=== PATIENT | male | born 1990 | race Caucasian/White ===

== ENCOUNTER 2019-06-09 11:52 | Emergency (ER) | payer SELFPAY | END 2019-06-09 13:31 | disposition home or self-care (01) | PROVIDERS: Emergency Provider Family Medicine; Family Provider Family Medicine; Visit Provider Family Medicine | DX: S16.1XXA Strain of muscle, fascia and tendon at neck level, initial encounter (principal); X58.XXXA Exposure to other specified factors, initial encounter; F17.210 Nicotine dependence, cigarettes, uncomplicated | CPT/HCPCS: 72040; 73030; 99283 ==

== ENCOUNTER 2020-12-10 09:38 | Emergency (ER) | payer SELFPAY ==
[2020-12-10 10:29] VITALS: BP 129/79; PULSE 61; RESP 16; TEMP 36.6; O2SAT 100; BMI 38.0
[2020-12-10 10:33] VITALS: RESP 15
--- NOTE | 2020-12-10 10:46 | W.ED.BACK ---
HPI - Back Pain/Injury General: Chief Complaint: Back Pain/Injury Stated Complaint: back pain/injury Time Seen by Provider: 12/10/20 10:34 History of Present Illness: HPI Narrative: Patient is a 30-year-old male comes to the ED with back pain. Patient says he has chronic back pain but he aggravated it yesterday while doing some weightlifting. Patient says he was doing all overhead shoulder press and he felt some muscle pain and strain and is mid back. Since last night he has been having thoracic back pain with some muscle spasms. He sees a chiropractor and a massage therapist for his back pain. Denies any cauda equina symptoms. Denies any pain radiating down his legs. Associated symptoms: Deny abdominal pain, chills, dysuria, fatigue, fever(s), hematuria, nausea or vomiting Review of Systems Const: Denies: fever(s), chills or fatigue Eyes: Denies: change in vision or eye discomfort ENMT: Denies: throat pain, odynophagia, nasal discharge or nasal congestion Card: Denies: chest pain, palpitations, edema, swelling of feet/ankles, dyspnea on exertion or orthopnea Resp: Denies: dyspnea, productive cough or non-productive cough GI: Denies: abdominal pain, nausea, vomiting, diarrhea, constipation or hematochezia : Denies: flank pain, difficulty urinating, dysuria or hematuria Musc: Reports: back pain; Denies: neck pain or extremity swelling Skin/Breast: Denies: rash or new lesions Neuro: Denies: headache(s), numbness in extremities or weakness in extremities Physical Exam Const: COMMON NORMALS: no acute distress, patient oriented x3, healthy appearing and alert GENERAL APPEARANCE: cooperative and comfortable HENMT: COMMON NORMALS: normocephalic HEAD & SCALP: normocephalic MOUTH: Normal oral and palatal mucosa present THROAT: posterior oropharynx normal and uvula midline Neck/C-Spine: COMMON NORMALS: supple GENERAL: Yes normal visual inspection Resp: COMMON NORMALS: normal respiratory effort, No retractions, No use of accessory muscles and clear to auscultation bilaterally AUSCULTATION: clear to auscultation bilaterally Cardio: COMMON NORMALS: regular rate, regular rhythm, S1 normal heart sound present, S2 normal heart sound present, No gallops present (Cardio), No clicks present (Cardio), No murmurs present (Cardio) and Peripheral pulses 2+ throughout RATE: regular rate RHYTHM: regular rhythm HEART SOUNDS: S1 normal heart sound present and S2 normal heart sound present PERIPHERAL PULSES: Peripheral pulses 2+ throughout GI: COMMON NORMALS: Normal to inspection, nondistended, normoactive bowel sounds present, Soft to palpation, non-tender and no masses PALPATION: Yes Soft to palpation : COMMON NORMALS: Yes no CVA tenderness BLADDER/KIDNEY EXAM: Yes no CVA tenderness Back/Pelvis: COMMON NORMALS: no CVA tenderness THORACIC SPINE/UPPER BACK: Yes pain with ROM, No thoracic spinal tenderness and Yes paraspinal muscle tenderness Thoracic paraspinal muscle tenderness: bilateral Bilateral thoracic paraspinal muscle tenderness: T6, T7 and T8 Extremity: COMMON NORMALS: normal to inspection Neuro: COMMON NORMALS: patient oriented x3 and moves all extremities SENSORIUM/ORIENTATION: Yes alert Skin: GENERAL SKIN EXAM: dry skin Course Vital Signs: Vital signs: Vital Signs Temperature 97.8 F 12/10/20 10:29 Pulse Rate 61 12/10/20 10:29 Respiratory Rate 15 12/10/20 10:33 Blood Pressure 129/79 12/10/20 10:29 Pulse Oximetry 100 12/10/20 10:29 MDM - Back Pain/Injury MDM Narrative: Medical decision making narrative: Patient is a 30-year-old male comes the ED with mid back pain. Patient thinks he strained a muscle while working out. Denies cauda equina symptoms. Exam shows thoracic spine paraspinal muscle tenderness and pain with range of motion. Patient was given a shot of Toradol and Norflex while here in the ED. He was discharged home with a prescription for meloxicam and Flexeril. Return to ED precautions given. Follow-up with PCP in 7 to 10 days for reevaluation. Patient understood agree with plan. Discharge Plan Discharge Patient Disposition: Home Clinical Impression: Thoracic back pain Qualifiers: Chronicity: acute Back pain laterality: bilateral Qualified Code(s): M54.6 - Pain in thoracic spine Condition: Stable Prescriptions: New meloxicam 15 mg tablet 15 mg PO DAILY Qty: 20 RF: 0 cyclobenzaprine 10 mg tablet 10 mg PO BID PRN (Reason: muscle spasm) Qty: 20 RF: 0 Discharge Orders: Discharge ED (Routine); Ordered 12/10/20 Ordered By: Trip Jaramillo Discharge Diet: Regular Discharge Activity: Increase activity as tolerated Patient Instructions: Muscle Spasm (ED), Back Pain (ED) Activity Restrictions/Additional Instructions: Follow-up with medical provider as directed in 7-10 days for reevaluation. Take medications as prescribed. Rest and limit any lifting. Apply cold pack on back to help with symptoms and stretch back out daily. Cyclobenzaprine is a muscle relaxer and can cause some drowsiness so take at night before bed. Return to the ER or your medical provider if condition worsens. Please read and understand discharge instructions. Thank you for choosing [facility] for your healthcare needs today. Please realize this is an emergency room and that we are providing you with a medical screening exam and this may not be complete and all inclusive of all the testing and or work up that you may need to determine your ailment or severity of your illness. It is very important that you follow up as instructed or that you return to the Emergency Department should you have concerns or if your condition changes or worsens in any way. Coding Level of Care Code ED Supervisor Cell Room for Jin Guerra Exam Comprehensive
[2020-12-10] MEDS: ketorolac 60 mg/2 mL INJ IM (11:34)
[2020-12-10] MEDS: orphenadrine 30 mg/mL Inj 2 mL 60 MG IM (11:34)
== END 2020-12-10 11:38 | disposition home or self-care (01) ==
PROVIDERS: Emergency Provider Physician Assistant
DX: M54.6 Pain in thoracic spine (principal)
CPT/HCPCS: 96372; 99283; J1885; J2360

== ENCOUNTER 2021-10-04 16:41 | Emergency (ER) | payer SELFPAY ==
[2021-10-04 17:16] VITALS: BP 156/80; PULSE 69; RESP 18; TEMP 37; O2SAT 98; BMI 29.8
--- NOTE | 2021-10-04 17:27 | ED_ITS ---
HPI - Back Pain/Injury General: Chief Complaint: Back Pain/Injury Stated Complaint: lower back/leg pain Time Seen by Provider: 10/04/21 17:25 Source: patient Mode of arrival: wheelchair Limitations: no limitations History of Present Illness: Patient is a 31-year-old male who presents to ED today with a complaint of right lower back pain that began earlier today while he was at work. Patient states he was unloading heavy material from a truck and feels like he injured his back. Patient states he has had intermittent back pains for years and states when it normally flares up he can treat conservat ively at home as well as therapeutic massage. Patient states his pain currently is radiating down into his right buttock and down into his right thigh. He does not describe any saddle anesthesia-like sensations. He is not having any bowel or bladder dysfunction. MD elicited complaint: back pain Pertinent past history: prior back pain Onset (ago): hour(s) Timing: constant Severity: severe Pain scale (0-10): 8 Similar Symptoms Previously: Yes Location: lumbar spine and right lower back Radiation: buttocks and right upper leg Exacerbating factors: movement, walking and lifting Relieving factors: immobilization Context: while lifting and turning/twisting Associated symptoms: Reports difficulty walking (secondary to back discomfort ); Deny abdominal pain, chills, dysuria, fatigue, fever(s) or hematuria Review of Systems Const: Denies: fever(s), chills, body aches, fatigue or malaise Card: Denies: chest pain Resp: Denies: dyspnea GI: Denies: abdominal pain : Denies: flank pain, dysuria or hematuria Musc: Reports: back pain; Denies: neck pain, extremity pain, extremity swelling, joint pain, joint swelling, joint redness or joint warmth Neuro: Reports: difficulty walking (secondary to back discomfort ); Denies: numbness in extremities, weakness in extremities or sensory changes Physical Exam Const: COMMON NORMALS: average body habitus, patient oriented x3, no limitations, healthy appearing, alert and well nourished GENERAL APPEARANCE: cooperative and in distress (secondary to discomfort in back) HENMT: COMMON NORMALS: normocephalic and atraumatic HEAD & SCALP: normocephalic and atraumatic Neck/C-Spine: COMMON NORMALS: full ROM and no meningeal signs CERVICAL SPINE: Yes cervical ROM normal, No pain with cervical ROM, No Cervical spine tenderness, No step off deformity and No Paracervical muscle tenderness Resp: COMMON NORMALS: normal respiratory effort Cardio: COMMON NORMALS: regular rate and regular rhythm RATE: regular rate RHYTHM: regular rhythm Back/Pelvis: THORACIC SPINE/UPPER BACK: Yes normal to inspection, No thoracic spinal tenderness, No paraspinal muscle tenderness and No paraspinal muscle spasm LUMBAR SPINE/LOWER BACK: Yes ROM limited, Yes lumbar spinal tenderness Lumbar spinal tenderness location: L3 and L4, Yes paraspinal muscle tenderness Lumbar paraspinal muscle tenderness: right and No paraspinal muscle spasm PELVIS: Yes buttock abnormal Buttock abnormal laterality: right Right buttock abnormal details: tenderness SACROILIAC JOINTS: Yes SI joint(s) abnormal SI joint details: tender to palpation (right) SACRUM: no tenderness COCCYX: no swelling Extremity: COMMON NORMALS: normal to inspection, capillary refill normal, no joint enlargement, no clubbing, cyanosis or edema, no calf tenderness and no pedal edema GENERAL: Yes normal exam except as noted Neuro: COMMON NORMALS: patient oriented x3, moves all extremities, no focal motor deficits and no sensory deficits noted SENSORIUM/ORIENTATION: Yes alert MENINGEAL SIGNS: Yes no meningeal signs GAIT: Yes Unable to assess gait MOTOR EXAM: Other motor observations present (strength testing could not be performed at this time due to discomfort ) OTHER: strength testing re-performed after medications/better pain control and strength is 5/5 to bilateral LEs Skin: COMMON NORMALS: no rashes or lesions noted GENERAL SKIN EXAM: no rashes or lesions noted TRAUMA: no lacerations or abrasions Course Vital Signs: Vital signs: Vital Signs Temperature 98.6 F 10/04/21 17:16 Pulse Rate 69 10/04/21 17:16 Respiratory Rate 18 10/04/21 19:05 Blood Pressure 156/80 10/04/21 17:16 Pulse Oximetry 98 10/04/21 17:16 MDM - Back Pain/Injury Medical Decision Making Patient feels much better after IM medications here. He is up and ambulatory without assistance. Recommend follow-up with primary care if symptoms persist. Will place patient on anti-inflammatories, steroids, muscle relaxers. Recommend continuing conservative treatments at home. Discharge Plan Discharge Patient Disposition: Home Clinical Impression: Lumbar radiculopathy Condition: Stable Prescriptions: New ibuprofen 800 mg tablet 800 mg PO Q8H PRN (Reason: pain) Qty: 20 0RF methocarbamol 750 mg tablet 1,500 mg PO Q8H Qty: 30 0RF Medrol (German) 4 mg tablets,dose pack See Rx Instructions .ROUTE .COMPLEX Qty: 21 0RF Rx Instructions: orally per package directions Discontinued meloxicam 15 mg tablet 15 mg PO DAILY Qty: 20 0RF cyclobenzaprine 10 mg tablet 10 mg PO BID PRN (Reason: muscle spasm) Qty: 20 0RF Discharge Orders: Discharge ED (Routine); Ordered 10/04/21 Ordered By: Grazyna Luis Stand Alone Forms: Work/School Release Coding Level of Care Code ED Weapons Electrical Engineering Officer for Jin Fwd Exam Comprehensive
[2021-10-04] MEDS: dexamethasone 10 mg/mL INJ 8 MG IM (18:08)
[2021-10-04] MEDS: orphenadrine 30 mg/mL Inj 2 mL 60 MG IM (18:08)
[2021-10-04] MEDS: ketorolac 60 mg/2 mL INJ IM (18:08)
[2021-10-04 19:05] VITALS: RESP 18
[2021-10-04] MEDS: morphine 4 mg/mL SDV 1 mL IM (19:05)
== END 2021-10-04 19:36 | disposition home or self-care (01) ==
PROVIDERS: Emergency Provider Physician Assistant
DX: M54.16 Radiculopathy, lumbar region (principal)
CPT/HCPCS: 96372; 99283; J1100; J1885; J2270; J2360

== ENCOUNTER 2022-07-19 14:55 | Emergency (ER) | payer SELFPAY ==
[2022-07-19 15:02] VITALS: BP 144/80; PULSE 69; RESP 14; TEMP 36.7; O2SAT 98; BMI 33.0
--- NOTE | 2022-07-19 15:09 | ED_ITS ---
HPI - Extremity Injury (Lower) General: Chief Complaint: Extremity Injury, Lower Stated Complaint: right foot injury Time Seen by Provider: 07/19/22 15:08 Source: patient Mode of arrival: ambulatory Limitations: no limitations History of Present Illness: Patient is a 31-year-old male who presents to the ED today for evaluation of a right foot injury. Patient tells me several hours ago he accidentally dropped a weight onto the foot. Patient states he is able to ambulate by placing the majority of his weight on his hindfoot. He has noticed some swelling and beginning ecchymosis. No breaks in the skin. complaint: foot injury Onset (ago): hour(s) Type of Injury: blunt Place: other (gym) Severity: moderate Relieving factors: immobilization Exacerbating factors: weight bearing Context: direct blow Associated symptoms: Reports no associated symptoms Other symptoms: none Review of Systems Musc: Reports: extremity pain (R foot) and extremity swelling (R foot) Neuro: Denies: numbness in extremities or sensory changes Physical Exam Const: COMMON NORMALS: no acute distress, average body habitus, patient orient ed x3, no limitations, healthy appearing, alert and well nourished Extremity: GENERAL: Yes normal exam except as noted RIGHT LOWER EXTREMITY: Yes foot & digits (TTP, swelling, ecchymosis to distal dorsal R foot near 1-2 metatarsal heads) Right foot and digits: Yes neurovascular exam (normal) Neuro: COMMON NORMALS: patient oriented x3 SENSORIUM/ORIENTATION: Yes alert Skin: TRAUMA: no lacerations or abrasions Course Vital Signs: Vital signs: Vital Signs Temperature 98.1 F 07/19/22 15:02 Pulse Rate 69 07/19/22 15:22 Respiratory Rate 14 07/19/22 15:22 Blood Pressure 144/80 07/19/22 15:22 Pulse Oximetry 98 07/19/22 15:22 Oxygen Delivery Me thod 07/19/22 15:22 MDM - Extremity Injury (Lower) Medical Decision Making XR negative. Patient declines crutches/PHILIP wrap. Discharge Plan Discharge Patient Disposition: Home Clinical Impression: Contusion of right foot Qualifiers: Encounter type: initial encounter Qualified Code(s): S90.31XA - Contusion of right foot, initial encounter Condition: Stable Prescriptions: No Action ibuprofen 800 mg tablet 800 mg PO Q8H PRN (Reason: pain) Qty: 20 0RF methocarbamol 750 mg tablet 1,500 mg PO Q8H Qty: 30 0RF Medrol (German) 4 mg tablets,dose pack See Rx Instructions .ROUTE .COMPLEX Qty: 21 0RF Rx Instructions: orally per package directions Discharge Orders: Discharge ED (Routine); Ordered 07/19/22 Ordered By: Grazyna Luis Coding Level of Care Code ED Captain'S Assistant for Jin Guerra
--- NOTE | 2022-07-19 15:11 | XRR_ITS ---
PROCEDURE INFORMATION: Exam: XR Right Foot Exam date and time: 07/19/2022 3:18 PM Age: 31 years old Clinical indication: Injury or trauma; Other: Dropped 10 pound weight on foot; Crushing; Right; Additional info: Crush injury TECHNIQUE: Imaging protocol: Radiologic exam of the Right foot. Views: 3 or more views. COMPARISON: No relevant prior studies available. FINDINGS: Bones/joints: Normal. Soft tissues: Normal. XR/XR foot RT min 3V* [id number] IMPRESSION: No acute findings.
[2022-07-19 15:22] VITALS: BP 144/80; PULSE 69; RESP 14; O2SAT 98
[2022-07-19 15:48] VITALS: PULSE 68; RESP 14; O2SAT 98
== END 2022-07-19 15:49 | disposition home or self-care (01) ==
PROVIDERS: Emergency Provider Physician Assistant
DX: S90.31XA Contusion of right foot, initial encounter (principal); W22.8XXA Striking against or struck by other objects, initial encounter
CPT/HCPCS: 73630; 99283

== ENCOUNTER 2025-03-14 19:28 | Emergency (ER) | payer SELFPAY ==
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
[2025-03-14 19:37] VITALS: BP 165/46; PULSE 104; RESP 18; TEMP 37.2; O2SAT 98; BMI 36.2
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
[2025-03-14 20:49] LABS: Hematocrit 35.9 % (37-53); Hemoglobin 12.40 g/dL (11.27-16.99); Mean Corpuscular HGB Conc 34.5 g/dL (30-55); Mean Corpuscular Hemoglobin 28.0 pg (27-33); Mean Corpuscular Volume 81.0 fl (82-101); Nucleated Red Blood Cells % 0 %; Platelet Count 347 10^3/cmm (157-399); Red Blood Count 4.43 10^6/uL (3.85-5.65); White Blood Count 10.69 10^3/uL (3.29-11.43)
[2025-03-14] MEDS: iohexol 350 mg/mL 500 mL Btl (per mL) IV (21:05)
[2025-03-14 21:12] LABS: Alanine Aminotransferase 101 U/L (0-41); Albumin Level 4.6 g/dL (3.5-5.2); Alkaline Phosphatase 75 U/L (40-130); Anion Gap 18.5 (5-19); Aspartate Amino Transferase 147 U/L (0-40); Blood Urea Nitrogen 16 mg/dL (6-20); Calcium 9.7 mg/dL (8.5-10.5); Carbon Dioxide 25 mmol/L (22-29); Chloride 97 mmol/L (98-107); Creatinine Clr Calc Pharmacy 152.4975; Globulin 3.1 g/dL (1.3-4.6); Glucose 100 mg/dL (65-115); Osmolality Calculated 283 mOsm/kg (285-295); Potassium 4.5 mmol/L (3.5-5.1); Sodium 136 mmol/L (136-145); Total Protein 7.7 g/dL (6.6-8.7)
[2025-03-14 21:13] LABS: Alcohol Level < 10 mg/dL (0-10)
[2025-03-14] MEDS: morphine 4 mg/mL SDV 1 mL IVP (22:21)
[2025-03-14] MEDS: ondansetron 2 mg/ML SDV 2 mL 4 MG IVP (22:21)
[2025-03-14 22:23] LABS: Glucose Urine UA Negative (Normal); Nitrate Urine Negative (Negative)
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
[2025-03-14 22:29] LABS: PCP Screen Urine Negative (Negative)
[2025-03-14 22:34] LABS: Specific Gravity, Urine 1.039 (1.005-1.030)
[2025-03-14 22:36] LABS: Add Urine Microscopic? YES; UA Manual Slide Review YES
[2025-03-14 22:43] VITALS: BP 197/105; PULSE 105; O2SAT 97
[2025-03-14 23:03] VITALS: BP 178/73; PULSE 96; RESP 18; O2SAT 99
== END 2025-03-14 23:04 | disposition home or self-care (01) ==
PROVIDERS: Emergency Provider Emergency Medicine
DX: S80.02XA Contusion of left knee, initial encounter (principal); S06.0X0A Concussion without loss of consciousness, initial encounter; V89.2XXA Person injured in unspecified motor-vehicle accident, traffic, initial encounter
CPT/HCPCS: 36415; 70450; 71260; 72125; 73562; 73630; 74177; 80053; 80306; 80307; 81001; 85025; 96374; 96375; 99285; J1885; J2270; J2405